=== PATIENT | female | born 1985 | race Caucasian/White ===

== ENCOUNTER 2018-03-17 18:55 | Emergency (ER) | payer MEDICAID ==
[~2018-03-17 18:55] MED LIST: Penicillin V Potassium 250 MG Tab ONE
--- NOTE | 2018-03-17 19:53 | ER ---
The patient is a 32-year-old female who comes in today with one-week history of right lower jaw pain. She had a tooth pulled about a week ago. She noted she had a small bleb on the gum which ruptured the other day and there was some bloody purulent material and it tasted foul. She has called the dentist a couple of times. She feels she has a dental infection. She does not have a fever. She does not have nausea or vomiting. ALLERGIES: CODEINE. PAST MEDICAL HISTORY: Significant for tubal pregnancies x3, some ovarian cysts. Otherwise, the patient is on no medications and is in good health. PHYSICAL EXAMINATION: GENERAL: She is afebrile. She is alert and oriented, in no apparent distress. There is an open socket on the right lower jaw. I do not see any obvious blebs or swelling on the gum. It is mildly erythematous. NECK: Supple. No nodes. LUNGS: Clear. HEART: Regular sinus rhythm. ASSESSMENT: Dental infection or possibly a dry socket. PLAN: We will put the patient on some Pen-VK 500 one p.o. q.6h. We will have her follow up with the dentist as soon as he is open again after the holiday ends. The patient to return to clinic earlier if she develops a fever or other symptoms. CHANTELLE /[id number]
== END 2018-03-17 19:15 | disposition home or self-care (01) ==
LOC: LB.ED 18:55
DX: K04.7 Periapical abscess without sinus (principal); Z88.5 Allergy status to narcotic agent
CPT/HCPCS: 99283; A9270-GY

== ENCOUNTER 2019-07-07 11:07 | Emergency (ER) | payer MEDICAID ==
--- NOTE | 2019-07-07 11:35 | EDM.PDOC ---
ED HPI GENERAL MEDICAL PROBLEM - General Chief Complaint: Upper Extremity Injury/Pain Stated Complaint: LEFT HAND INJURY Time Seen by Provider: 07/07/19 11:20 Source of Information: Reports: Patient History Limitations: Reports: No Limitations - History of Present Illness INITIAL COMMENTS - FREE TEXT/NARRATIVE: This patient presents to the ED for evaluation of a hand injury. Her left hand was caught between a washing machine and a door frame. She is complaining of pain over the 2nd and 3rd digits and MCP joints. She denies other injuries or concerns. Onset: Today - Related Data Allergies Allergy/AdvReac Type Severity Reaction Status Date / Time codeine AdvReac Fainting Verified 03/17/18 19:09 morphine AdvReac Hallucinati Verified 03/17/18 19:09 ons Past Medical History HEENT History: Reports: None FANCY SEWER History: Reports: Ectopic , Polycystic Ovaries Musculoskeletal History: Reports: Fracture - Past Surgical History HEENT Surgical History: Reports: None Social & Family History - Family History Family Medical History: Noncontributory - Caffeine Use Caffeine Use: Reports: Coffee Review of Systems - Review of Systems Review Of Systems: ROS reveals no pertinent complaints other than HPI. ED EXAM, GENERAL - Physical Exam Exam: See Below Exam Limited By: No Limitations General Appearance: Alert, WD/WN, No Apparent Distress Eye Exam: Bilateral Eye: PERRL Ears: Normal External Exam Nose: Normal Inspection Head: Atraumatic, Normocephalic Neck: Full Range of Motion Respiratory/Chest: No Respiratory Distress Extremities: Normal Range of Motion, Other (Mild swelling over MCP joints of 2nd and 3rd digits of left hand. No deformity or discoloration noted. Distal CMS intact.) Neurological: Alert, Oriented Psychiatric: Normal Affect Skin Exam: Warm, Dry Course - Orders/Labs/Meds Orders: Active Orders 24 hr Category Date Time Status Hand Comp Min 3V Lt [CR] Stat Exams 07/07/19 11:21 Ordered - Re-Assessments/Exams Free Text/Narrative Re-Assessment/Exam: 07/07/19 11:36 This patient presents for evaluation after getting her hand caught between 2 objects. A broad differential was considered including sprain, strain, fracture , tendon rupture, nerve impingement/compromise, referred pain. X-ray was negative for acute findings, and signs and symptoms are consistent with a contusion. Supportive outpatient management is indicated. Rest, ice, and elevation treatment was discussed with the patient. She was encouraged to use ibuprofen for pain and swelling. Close follow-up with patient's primary care physician per discharge precautions. Contusion discharge instructions given for home. Departure - Departure Time of Disposition: 11:35 Disposition: Home, Self-Care 01 Condition: Good Clinical Impression: Contusion - Discharge Information *PRESCRIPTION DRUG MONITORING PROGRAM REVIEWED*: No - My Orders Last 24 Hours: My Active Orders 07/07/19 11:21 Hand Comp Min 3V Lt [CR] Stat - Assessment/Plan Last 24 Hours: My Active Orders 07/07/19 11:21 Hand Comp Min 3V Lt [CR] Stat
--- NOTE | 2019-07-07 13:14 | CR ---
Date of Service: 07/07/19 Clinical Data: trauma LEFT HAND: No acute fracture or dislocation. No lytic or blastic bone lesions. IMPRESSION: Negative exam. [id number] [facility]
== END 2019-07-07 11:35 | disposition home or self-care (01) ==
LOC: LB.ED 11:07
DX: S60.022A Contusion of left index finger without damage to nail, initial encounter (principal); S60.032A Contusion of left middle finger without damage to nail, initial encounter; W23.1XXA Caught, crushed, jammed, or pinched between stationary objects, initial encounter; Z88.5 Allergy status to narcotic agent
CPT/HCPCS: 73130-LT; 99283-25